=== PATIENT | female | born 1990 | race Caucasian/White ===

== ENCOUNTER 2020-11-28 15:41 | Emergency (ER) | payer OTHER ==
[2020-11-28 15:50] VITALS: BP 123/63
[2020-11-28] MEDS ORDERED: AMOX/CLAV 875 MG/125 MG TABLET PO STA (16:06)
--- NOTE | 2020-11-28 16:06 | ED Physician Documentation ---
PD HPI WOUND RECHECK - Stated complaint Stated Complaint: RT HAND LAC - Chief complaint Chief Complaint: Wound - Histroy obtained from History obtained from: Patient - Additional information Additional information: Breaking up a dog fight and her friend's dog bit her a single time between the webspace of the third and second fingers of the right hand. 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 No other injuries. Review of Systems Constitutional: denies: Fever, Chills Eyes: reports: Reviewed and negative Ears: reports: Reviewed and negative Nose: reports: Reviewed and negative PD PAST MEDICAL HISTORY - Present Medications Home Medications: Ambulatory Orders Medication Instructions Recorded Confirmed Amox/Clav 875/125 [Augmentin] 1 each PO Q12H #10 tablet 11/28/20 - Allergies Allergies/Adverse Reactions: Allergies Allergy/AdvReac Type Severity Reaction Status Date / Time No Known Drug Allergies Allergy Verified 11/28/20 15:49 PD ED PE NORMAL - Vitals Vital signs reviewed: Yes - General General: Alert and oriented X 3, No acute distress - Extremities Extremities: Other (She has a puncture wound in the dorsal webspace between the second and third digits with full range of motion and no distal neurovascular compromise. It is hemostatic.) - Neuro Neuro: Alert and oriented X 3, Normal speech Results - Vitals Vitals: Vital Signs - 24 hr 11/28/20 15:46 Temperature 36.9 C Heart Rate 70 Respiratory 16 Rate Blood Pressure 123/63 O2 Saturation 100 Oxygen O2 Source Room air Departure - Departure Disposition: 01 Home, Self Care Clinical Impression: Animal bite with open wound Condition: Good Record reviewed to determine appropriate education?: Yes Instructions: ED Bite Animal General Prescriptions: Amox/Clav 875/125 [Augmentin] 1 each PO Q12H #10 tablet
== END 2020-11-28 16:35 | disposition home or self-care (01) ==
LOC: ED 15:41
DX: S61.451A Open bite of right hand, initial encounter (principal); W54.0XXA Bitten by dog, initial encounter
CPT/HCPCS: 99282; 99283; A9270